=== PATIENT | female | born 1990 | race American Indian/Alaskan Native ===

== ENCOUNTER 2020-07-04 22:08 | Emergency (ER) | payer SELFPAY ==
[2020-07-05 00:20] LABS: Basophils # (Auto) 0.1 K/mm3 (0.0-0.1); Basophils % (Auto) 0.4 % (0.0-1.8); Eosinophils # (Auto) 0.1 K/mm3 (0.0-0.4); Eosinophils % (Auto) 0.9 % (0.0-4.3); Hematocrit 39.2 % (30.3-42.9); Hemoglobin 13.1 gm/dl (10.1-14.3); Lymphocytes # (Auto) 2.8 K/mm3 (1.2-5.4); Lymphocytes % (Auto) 22.4 % (13.4-35.0); Mean Corpuscular HGB Conc 34 % (30-34); Mean Corpuscular Volume 85 fl (79-97); Monocytes # (Auto) 0.6 K/mm3 (0.0-0.8); Monocytes % (Auto) 4.8 % (0.0-7.3); Platelet Count 367 K/mm3 (140-440); Red Blood Count 4.62 M/mm3 (3.65-5.03); Red Cell Distribution Width 14.5 % (13.2-15.2)
[2020-07-05 00:42] LABS: Alanine Aminotransferase 11 units/L (7-56); Albumin 4.3 g/dL (3.9-5); Blood Urea Nitrogen 10 mg/dL (7-17); Calcium 9.4 mg/dL (8.4-10.2); Hemolysis Index 13
[2020-07-05 01:05] LABS: BUN/Creatinine Ratio 14
[2020-07-05 02:52] LABS: Bilirubin,Urine NEG (Negative); Blood,Urine MOD (Negative); Color,Urine Yellow (Yellow); Mucus,Urine FEW /HPF; Protein,Urine <15 mg/dL mg/dL (Negative); Urobilinogen,Urine < 2.0 mg/dL (<2.0)
[2020-07-05] MEDS ORDERED: ONDANSETRON 4 MG/2 ML INJ IV ONE (03:23)
[2020-07-05] MEDS ORDERED: SODIUM CHLORIDE 0.9% 1000 ML 1,000 ML IV ONE (03:23)
[2020-07-05] MEDS ORDERED: MORPHINE 4 MG/1 ML INJ IV ONE (03:23)
--- NOTE | 2020-07-05 03:29 | Emergency Department Report ---
ED Abdominal Pain HPI - General Chief Complaint: Abdominal Pain Stated Complaint: STOMACH PAIN PUI?: No Time Seen by Provider: 07/05/20 03:20 Source: patient Mode of arrival: Ambulatory Limitations: No Limitations - History of Present Illness Initial Comments: CC: abdominal pain HPI: This is a 29 yo female without significant past medical hx who presents with periumbilical suprapublic abdominal pain for 3 days. Sharp burning pain. Persistent. No change with movement. No vaginal discharge. Has had history of gonorrhea infection in the past. MD Complaint: abdominal pain -: Gradual, days(s) (3 days) Location: periumbilical, suprapubic Radiation: suprapubic Severity: severe Severity scale (0 -10): 9 Quality: sharp, burning Consistency: constant Improves With: nothing Worsens With: nothing Associated Symptoms: denies other symptoms - Related Data Previous Rx's Medication Instructions Recorded Last Taken Type Doxycycline Hyclate [Doxycycline 100 mg PO Q12HR 14 Days #28 tab 07/05/20 Unknown Rx Hyclate TAB] Allergies Allergy/AdvReac Type Severity Reaction Status Date / Time No Known Allergies Allergy Unverified 07/04/20 23:38 ED Review of Systems ROS: Stated complaint: STOMACH PAIN Other details as noted in HPI Comment: All other systems reviewed and negative Constitutional: denies: fever, malaise Respiratory: denies: shortness of breath Cardiovascular: denies: chest pain Gastrointestinal: abdominal pain. denies: nausea, vomiting, diarrhea ED Past Medical Hx - Past Medical History Previous Medical History?: No - Surgical History Past Surgical History?: Yes Hx Cholecystectomy: Yes Additional Surgical History: nose, tubaligtion - Social History Smoking Status: Current Some Day Smoker Substance Use Type: None - Medications Home Medications: Home Medications Medication Instructions Recorded Confirmed Last Taken Type Doxycycline Hyclate [Doxycycline 100 mg PO Q12HR 14 Days #28 tab 07/05/20 Unknown Rx Hyclate TAB] ED Physical Exam - General Limitations: No Limitations General appearance: alert, in no apparent distress - Head Head exam: Present: atraumatic, normocephalic - Eye Eye exam: Present: normal appearance - ENT ENT exam: Present: mucous membranes moist - Neck Neck exam: Present: normal inspection, full ROM - Respiratory Respiratory exam: Present: normal lung sounds bilaterally. Absent: respiratory distress, wheezes, rales, rhonchi - Cardiovascular Cardiovascular Exam: Present: regular rate, normal rhythm, normal heart sounds. Absent: systolic murmur, diastolic murmur, rubs, gallop - GI/Abdominal GI/Abdominal exam: Present: soft, normal bowel sounds. Absent: distended, tenderness, guarding, rebound - Speculum exam: Present: vaginal discharge, cervical discharge (White thick cervical discharge) Bi-manual exam: Present: cervical motion tendernes, adnexal tenderness, uterine tenderness - Extremities Exam Extremities exam: Present: normal inspection - Neurological Exam Neurological exam: Present: alert, oriented X3 - Psychiatric Psychiatric exam: Present: normal affect, normal mood - Skin Skin exam: Present: warm, dry, intact, normal color. Absent: rash ED Course Vital Signs 07/04/20 07/05/20 23:32 03:00 Temperature 99.1 F Pulse Rate 77 Respiratory 18 Rate Blood Pressure 111/66 Blood Pressure 128/66 [Right] O2 Sat by Pulse 99 100 Oximetry ED Medical Decision Making - Lab Data Result diagrams: 07/04/20 23:53 07/04/20 23:53 - Radiology Data Radiology results: report reviewed Patient Name: ELINOR ANDERSON Gender: Female Date of : 1990 Referring Provider: YANA LONGO Organization: [facility] Accession Number: [id number] Requested Date: July 05, 2020 03:54 Report Status: Final Requested Procedure: 1 Procedure Description: CT abdomen pelvis w con Modality: CT Findings Reporting MD: Mai Hernandez Dictation Time: July 05, 2020 03:12 Inspector Exhaust Emissions: Not available Quality Assurance Lead Date: CT ABDOMEN AND PELVIS WITH CONTRAST INDICATION / CLINICAL INFORMATION: Periumbilical and Suprapubic abdominal pain x 3 days. TECHNIQUE: Axial CT images were obtained through the abdomen and pelvis after 100 mL Omnipaque [address] scans at this location are performed using CT dose reduction for ALARA by means of automated exposure control. COMPARISON: None available. FINDINGS: LOWER CHEST: No significant abnormality. LIVER: No significant abnormality. BILIARY SYSTEM: Prior cholecystectomy. PANCREAS: No significant abnormality. SPLEEN: A small splenic cyst is noted. ADRENALS: No significant abnormality. KIDNEYS and URETERS: There is a 4 mm nonobstructive right intrarenal stone. STOMACH / BOWEL: No significant abnormality. The appendix is normal. PERITONEUM: Trace pelvic free fluid. No free air. No fluid collection. LYMPH NODES: No significant adenopathy. VASCULAR STRUCTURES: No significant abnormality. URINARY BLADDER: Mild circumferential bladder wall thickening, accentuated by underdistention. REPRODUCTIVE ORGANS: No significant abnormality. ADDITIONAL FINDINGS: None. SKELETAL SYSTEM: No significant abnormality. IMPRESSION: 1. Mild circumferential bladder wall thickening may be secondary to underdistention, though recommend correlation with urinalysis to exclude cystitis. 2. Small nonobstructive right intrarenal stone. Signer Name: Mai Hernandez MD Signed: 07/05/2020 3:12 AM Workstation Name: [id number] - Medical Decision Making 1. Pelvic inflammatory disease: Patient received ceftriaxone and doxycycline in emergency department. 2. Cystitis: Should be covered with doxycycline as prescribed above Critical care attestation.: If time is entered above; I have spent that time in minutes in the direct care of this critically ill patient, excluding procedure time. ED Disposition Clinical Impression: PID (acute pelvic inflammatory disease), Cystitis Disposition: TO HOME OR SELFCARE Is pt being admited?: No Does the pt Need Aspirin: No Condition: Stable Instructions: Abdominal Pain (ED), Pelvic Inflammatory Disease, [id number], Urinary Tract Infection, Adult Prescriptions: Doxycycline Hyclate [Doxycycline Hyclate TAB] 100 mg PO Q12HR 14 Days #28 tab Referrals: MIAH YORK MD [Staff Physician] - 3-5 Days [facility] [Provider Group] - 3-5 Days
--- NOTE | 2020-07-05 04:17 | Cat Scan Report ---
CT ABDOMEN AND PELVIS WITH CONTRAST INDICATION / CLINICAL INFORMATION: Periumbilical and Suprapubic abdominal pain x 3 days. TECHNIQUE: Axial CT images were obtained through the abdomen and pelvis after 100 mL Omnipaque [address] scans at this location are performed using CT dose reduction for ALARA by means of automated exposure control. COMPARISON: None available. FINDINGS: LOWER CHEST: No significant abnormality. LIVER: No significant abnormality. BILIARY SYSTEM: Prior cholecystectomy. PANCREAS: No significant abnormality. SPLEEN: A small splenic cyst is noted. ADRENALS: No significant abnormality. KIDNEYS and URETERS: There is a 4 mm nonobstructive right intrarenal stone. STOMACH / BOWEL: No significant abnormality. The appendix is normal. PERITONEUM: Trace pelvic free fluid. No free air. No fluid collection. LYMPH NODES: No significant adenopathy. VASCULAR STRUCTURES: No significant abnormality. URINARY BLADDER: Mild circumferential bladder wall thickening, accentuated by underdistention. REPRODUCTIVE ORGANS: No significant abnormality. ADDITIONAL FINDINGS: None. SKELETAL SYSTEM: No significant abnormality. IMPRESSION: 1. Mild circumferential bladder wall thickening may be secondary to underdistention, though recommend correlation with urinalysis to exclude cystitis. 2. Small nonobstructive right intrarenal stone. Signer Name: Mai Hernandez MD Signed: 07/05/2020 4:12 AM Workstation Name: [id number]
[2020-07-05] MEDS ORDERED: DOXYCYCLINE 100 MG CAP PO ONE (04:54)
[2020-07-05] MEDS ORDERED: LIDOCAINE-MPF (1%) 10 MG/1 ML VIAL 5 ML INFILTRATI ONE (04:54)
[2020-07-05] MEDS ORDERED: KETOROLAC 30 MG/1 ML INJ IV ONE (04:54)
[2020-07-05 06:01] VITALS: BP 116/76
== END 2020-07-05 06:16 | disposition home or self-care (01) ==
LOC: ED 22:08
DX: N73.9 Female pelvic inflammatory disease, unspecified (principal); N30.90 Cystitis, unspecified without hematuria; F17.200 Nicotine dependence, unspecified, uncomplicated; Z90.49 Acquired absence of other specified parts of digestive tract; Z90.710 Acquired absence of both cervix and uterus; Z79.899 Other long term (current) drug therapy
CPT/HCPCS: 36415; 74177; 80053; 81001; 84703; 85025; 87086; 96361; 96372; 96374; 96375; 99284; J0696; J1885; J2270; J2405; J7030; Q9967